=== PATIENT | female | born 1990 | race Caucasian/White ===

== ENCOUNTER 2017-08-12 07:38 | Outpatient (CLI) | payer MEDICAID | END 2017-08-12 07:39 | disposition home or self-care (01) | LOC: BICULT 07:38 | PROVIDERS: ATTEND Nurse Practitioner Women's Health | DX: N92.6 Irregular menstruation, unspecified (principal) | CPT/HCPCS: 76856 ==

== ENCOUNTER 2018-11-29 18:45 | Emergency (ER) | payer MEDICAID ==
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
== END 2018-11-29 21:07 | disposition home or self-care (01) ==
LOC: SCSER 18:45
DX: S62.642A Nondisplaced fracture of proximal phalanx of right middle finger, initial encounter for closed fracture (principal); S70.12XA Contusion of left thigh, initial encounter; V43.62XA Car passenger injured in collision with other type car in traffic accident, initial encounter
CPT/HCPCS: 29125; 72170

== ENCOUNTER 2018-11-30 11:35 | Emergency (ER) | payer MEDICAID ==
[2018-11-30] MEDS ORDERED: Ketorolac Tromethamine 30 MG/ML VIAL ONE (12:33)
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
== END 2018-11-30 12:54 | disposition home or self-care (01) ==
LOC: SCSER 11:35
DX: S16.1XXA Strain of muscle, fascia and tendon at neck level, initial encounter (principal); V49.9XXA Car occupant (driver) (passenger) injured in unspecified traffic accident, initial encounter
CPT/HCPCS: 72125; 96372; J1885

== ENCOUNTER 2021-06-29 14:25 | Outpatient (CLI) | payer MEDICAID | END 2021-06-29 14:26 | disposition home or self-care (01) | LOC: BICULT 14:25 → EDSTATUS 15:00 | PROVIDERS: ATTEND Nurse Practitioner Women's Health | DX: N92.1 Excessive and frequent menstruation with irregular cycle (principal) | CPT/HCPCS: 76856 ==